=== PATIENT | male | born 2000 ===

== ENCOUNTER 2024-03-09 00:38 | Emergency (ER) | payer BC, SELFPAY ==
[2024-03-09 00:44] VITALS: BP 134/95
--- NOTE | 2024-03-09 01:06 | ED.GENMED ---
History of Present Illness
General
Chief Complaint: Musculo-Skeletal Complaint
Time Seen by Provider: 03/09/24 00:58
History of Present Illness
History of Present Illness:
24-year-old male presents to the emergency department for evaluation of discomfort to bilateral chest wall/flanks beginning approximate 2 hours ago. Has had this pain previously and has been worked up without diagnosis. The pain began suddenly
while he was attempting to sleep. Denies any fevers, chills, sweats, nausea, vomiting, or diarrhea. Pain is worse when he lies supine, unchanged when upright or prone. Nonpleuritic. No abdominal pain. Denies illicit substance use.
Review of Systems
Review of Systems
Allergies reviewed?: Yes
All Other Systems: ROS reviewed and negative except as documented in HPI and ROS
Phy Exam
Physical Exam
Physical Exam:
GEN: Well appearing, NAD, WDWN
HEENT: Oral mucosa moist, no scleral icterus
Cardiac: Regular rate and rhythm, no murmurs
Chest: No reproducible chest wall tenderness or gross deformities.
Lung: No respiratory distress, no tachypnea, lungs clear to auscultation bilaterally
MSK: No gross deformity or injuries
Skin: Good color, no pallor or jaundice, no rashes
Neuro: AO x3, moves all extremities freely
Psych: Calm, cooperative
Course
Orders/Labs/Results
Orders:
Orders
03/09/24 01:06
Electrocardiogram (*1) Urgent
Reason for Study: Chest Pain
EKG- Treatment ONCE
Ketorolac [Toradol] 15 mg IV NOW STA
CR Chest - 2 Views Urgent
Comment:
Reason For Exam: chest pain
03/09/24 01:30
Complete Blood Count/With Diff Urgent
Comprehensive Metabolic Panel Urgent
Troponin I Urgent
Abnormal Lab Results
03/09/24
01:30
WBC 12.6 H 10^3/uL
(4.8-10.8)
Abs Immat Gran (auto) 0.1 H 10^3/uL
(0-0.05)
Absolute Neuts (auto) 9.7 H 10^3/uL
(1.4-6.5)
Neutrophils % 77.3 H %
(42.2-75.2)
Lymphocytes % 14.6 L %
(20.5-51.1)
Glucose 120 H mg/dl
(70-99)
03/09/24 01:30
03/09/24 01:30
Vital Signs
Initial and Last Documented VS:
Initial Vital Signs
Temp Pulse Resp BP Pulse Ox
97.8 F 76 20 134/95 97
03/09/24 00:44 03/09/24 00:44 03/09/24 00:44 03/09/24 00:44 03/09/24 00:44
Last Documented Vital Signs
Temp Pulse Resp BP Pulse Ox
97.8 F 76 20 134/95 97
03/09/24 00:44 03/09/24 00:44 03/09/24 00:44 03/09/24 00:44 03/09/24 00:44
MDM/Problems Addressed
MDM/Problems Addressed:
Workup was grossly unremarkable. No EKG changes to suggest acute coronary syndrome or dale-/myocarditis. Meets PE rule out criteria. Unclear etiology, doubt cardiopulmonary in nature. Recommend primary care follow-up
Comment
Comment:
EKG independently interpreted by me shows a normal sinus rhythm at a rate of [address] changes concerning for ischemia, no priors for comparison
*Critical Care Note
Total Time (30-74mins, 75-104mins- exclusive of procedures): Not Applicable
ED Attending Note
-
Portions of this chart may have been created with voice recognition software.� Occasional wrong word or��sound alike� substitutions may have occurred due to the inherent limitations of voice recognition software.
Discharge Plan
Departure
Patient Disposition: Home (Routine Discharge)
Date of Disposition: 03/09/24
Time of Disposition: 02:04
Patient with high blood pressure during this ER visit?: No
Discharge Problem:
Atypical chest pain
Instructions: Chest Pain, Adult ED
Referrals:
UNKNOWN - PT DOES,NOT KNOW [Family Provider] -
Interventions
Interventions:
*Risk Screen - Suicide Last Done: 03/09/24 00:39
*Neglect/Abuse Screening Last Done: 03/09/24 00:39
*ED COVID-19 Vaccine History Last Done: 03/09/24 00:39
ED-Musculoskeletal Assessment Last Done: 03/09/24 01:32
Discharge Date and Time
Print Language: [id number]
[2024-03-09 01:32] VITALS: BMI 27.4
[2024-03-09] MEDS: TORADOL 15 MG IV (01:33)
[2024-03-09 01:39] LABS: % Basophils 0.4 % (0-2); % Eosinophils 2.9 % (0-6); % Immature Granulocytes 0.5 % (0-0.5); % Lymphocytes 14.6 % (20.5-51.1); % Monocytes 4.3 % (1.7-9.3); % Neutrophils 77.3 % (42.2-75.2); Absolute Basophils 0.1 10^3/uL (0-0.2); Absolute Eosinophils 0.4 10^3/uL (0-0.7); Absolute Immature Granulocytes 0.1 10^3/uL (0-0.05); Absolute Lymphocytes 1.8 10^3/uL (1.2-3.4); Absolute Monocytes 0.5 10^3/uL (0.1-0.6); Absolute Neutrophils 9.7 10^3/uL (1.4-6.5); Hematocrit 42.3 % (39.0-52.0); Hemoglobin 14.1 g/dL (13.0-18.0); Mean Corp Hgb Conc. 33.3 g/dL (33.0-37.0); Mean Corpuscular Hgb 29.9 pg (27.0-31.0); Mean Corpuscular Volume 89.8 fL (80.0-94.0); Mean Platelet Volume 9.2 fL (7.4-10.4); Nucleated Red Blood Cells % 0 % (-); Platelet Count 276 10^3/uL (130-400); Red Blood Cell Count 4.71 10^6/uL (4.70-6.10); Red Cell Dist. Width 11.9 % (11.5-14.5); White Blood Cell Count 12.6 10^3/uL (4.8-10.8)
[2024-03-09 01:50] LABS: ALT (SGPT) 36 U/L (0-50); AST (SGOT) 25 U/L (17-59); Albumin 4.5 g/dl (3.5-5.0); Alkaline Phosphatase 85 U/L (38-126); Blood Urea Nitrogen 14 mg/dl (9-20); Calcium 9.3 mg/dl (8.4-10.2); Carbon Dioxide 29 mmol/L (22-30); Chloride 102 mmol/L (98-107); Estimated Creatinine Clearance > 125 ml/min; Glucose 120 mg/dl (70-99); Potassium 3.8 mmol/L (3.5-5.1); Sodium 141 mmol/L (135-145); Total Bilirubin 0.7 mg/dl (0.2-1.3); Total Protein 7.2 g/dl (6.3-8.2); eGFR > 60.00
[2024-03-09 02:00] LABS: Troponin I < 0.012 ng/ml
[2024-03-09] MEDS: FLEXERIL 10 MG PO (02:16)
== END 2024-03-09 02:23 | disposition home or self-care (01) ==
LOC: EMR 00:38
PROVIDERS: Physician Assistant; EMERGENCY PHYSICIAN Emergency Medicine
DX: R07.89 Other chest pain (principal); R10.9 Unspecified abdominal pain; Z91.018 Allergy to other foods
CPT/HCPCS: 99284; 96374; 71046; 80053; 84484; 85025; 93005